=== PATIENT | female | born 1945 | race Caucasian/White ===

== ENCOUNTER → 2021-12-15 | Outpatient (CLI) | payer MEDICARE, OTHER ==
[~2021-12-15] MED LIST: ASPIRIN E.C. 8181 MG PO; COMPLETE MULTI1 TAB PO; COREG 3.123.125 MG/T PO; IMDUR 60MG60 MG/TAB PO; PLAVIX 75MG TAB75 MG PO; SYNTHROID0.112 MG/T PO
== END ==
LOC: COL.VAS 08:56
DX: I73.9 Peripheral vascular disease, unspecified (principal)